=== PATIENT | male | born 1965 | race Two or more races ===

== ENCOUNTER 2021-05-22 22:59 | Inpatient (IN) | payer MEDICAID, OTHER ==
[~2021-05-22] VITALS: Ht 185.4 cm; Wt 96.8 kg
[2021-05-23 01:51] LABS: Basophils # (auto) 0.1 10 ^3/uL (0-0.2); Basophils % (auto) 0.8 % (0.0-2.0); Eosinophils # (auto) 0.1 10 ^3/uL (0-0.8); Eosinophils % (auto) 1.6 % (0.0-7.0); Hematocrit 40.5 % (41.0-53.0); Hemoglobin 13.9 g/dL (13.5-17.5); Lymphocytes # (auto) 1.7 10 ^3/uL (0.4-5.4); Lymphocytes % (auto) 20.7 % (10.0-50.0); Mean Corpuscular Hemoglobin 30.3 pg (28.0-32.0); Mean Corpuscular Hgb Conc. 34.3 g/dL (32.0-36.0); Mean Corpuscular Volume 88.3 fL (80.0-100.0); Monocytes # (auto) 0.4 10 ^3/uL (0-1.3); Monocytes % (auto) 4.5 % (0.0-12.0); Neutrophils # (auto) 5.9 10 ^3/uL (1.6-8.6); Neutrophils % (auto) 72.4 % (37.0-80.0); Red Blood Cells 4.58 10^6/uL (4.5-5.90); Red Cell Distribution Width 13.7 % (11.8-14.3); White Blood Cell 8.2 10^3/uL (4.4-10.8)
[2021-05-23 01:57] LABS: Albumin 3.7 g/dL (3.4-5.0); Calcium 8.7 mg/dL (8.5-10.1); Potassium 3.9 mmol/L (3.5-5.1)
[2021-05-23 02:01] LABS: BUN/Creatinine Ratio 25.8; Bilirubin, Total 0.2 mg/dL (0.2-1.0); Total Protein 7.7 g/dL (6.4-8.2)
[2021-05-23] MEDS ORDERED: ASPirin 325 MG TAB PO ONE (02:30)
[2021-05-23] MEDS ORDERED: HEPARIN DRIP/D5W 100UNITS/ML 250 ML IV SCH ×2 (03:30→09:15)
[2021-05-23] MEDS ORDERED: HEPARIN SODIUM (PORCINE) 5000 UNITS/ML 1ML VIAL IV ONE (03:30)
[2021-05-23 04:32] LABS: INR 1.04 (0.9-1.15); Partial Thromboplastin Time 28.3 sec (23.6-33.0)
[2021-05-23 04:38] LABS: Basophils # (auto) 0.1 10 ^3/uL (0-0.2); Basophils % (auto) 1.2 % (0.0-2.0); Eosinophils # (auto) 0.2 10 ^3/uL (0-0.8); Eosinophils % (auto) 2.2 % (0.0-7.0); Hematocrit 40.4 % (41.0-53.0); Lymphocytes # (auto) 2.3 10 ^3/uL (0.4-5.4); Mean Corpuscular Hemoglobin 30.8 pg (28.0-32.0); Mean Corpuscular Hgb Conc. 34.7 g/dL (32.0-36.0); Mean Corpuscular Volume 88.7 fL (80.0-100.0); Monocytes # (auto) 0.4 10 ^3/uL (0-1.3); Monocytes % (auto) 5.6 % (0.0-12.0); Neutrophils # (auto) 4.6 10 ^3/uL (1.6-8.6); Nucleated Red Blood Cells % 0.1 %; Red Blood Cells 4.55 10^6/uL (4.5-5.90); Red Cell Distribution Width 13.6 % (11.8-14.3); White Blood Cell 7.6 10^3/uL (4.4-10.8)
[2021-05-23] MEDS ORDERED: NITROGLYCERIN 0.4 MG SL TAB SL PRN (07:00)
[2021-05-23] MEDS ORDERED: MORPHINE SULFATE INJECTION 2 MG/ML SYRG IV PRN (07:00)
[2021-05-23] MEDS ORDERED: ACETAMINOPHEN 325 MG TAB PO PRN (07:00)
[2021-05-23] MEDS ORDERED: ONDANSETRON HCL 4 MG/2 ML VIAL IV PRN (07:00)
[2021-05-23 09:23] LABS: Cholesterol 220 mg/dL (< 200)
[2021-05-23 09:25] LABS: HDL Cholesterol 30 mg/dL (40-59); LDL Cholesterol 133 mg/dL (< 100); Triglycerides 377 mg/dL (< 150)
[2021-05-23 09:34] LABS: INR 1.09 (0.9-1.15); Partial Thromboplastin Time 54.1 sec (23.6-33.0)
[2021-05-23] MEDS: amLODIPine BESYLATE 5 MG TAB PO SCH (10:07)
[2021-05-23] MEDS: PANTOPRAZOLE 40 MG TAB PO SCH (10:09)
[2021-05-23 10:56] LABS: INR 1.06 (0.9-1.15); Partial Thromboplastin Time 35.4 sec (23.6-33.0)
[2021-05-23] MEDS: HEPARIN DRIP/D5W 100UNITS/ML 250 ML IV SCH (13:02)
[2021-05-23 16:17] VITALS: BP 141/97
[2021-05-23 18:12] VITALS: BP 141/97
[2021-05-23 20:00] VITALS: BP 130/93
[2021-05-23 20:01] LABS: INR 1.05 (0.9-1.15); Partial Thromboplastin Time 58.1 sec (23.6-33.0)
[2021-05-23] MEDS ORDERED: ATORVASTATIN 20 MG TAB PO SCH (22:00)
[2021-05-23] MEDS: ATORVASTATIN 20 MG TAB PO SCH (22:03)
[2021-05-23] MEDS: HYDROcodone-ACET 5/325MG TAB PO PRN (22:05)
[2021-05-23] MEDS: TEMAZEPAM 15 MG CAP PO PRN (22:06)
[2021-05-23 22:37] VITALS: BP 130/93
[2021-05-24] VITALS (7 sets, daily range): BP systolic 122–134; BP diastolic 74–93
[2021-05-24] MEDS: HEPARIN DRIP/D5W 100UNITS/ML 250 ML IV SCH ×3 (00:37→22:28)
[2021-05-24 01:26] LABS: Basophils # (auto) 0.1 10 ^3/uL (0-0.2); Basophils % (auto) 0.8 % (0.0-2.0); Eosinophils # (auto) 0 10 ^3/uL (0-0.8); Eosinophils % (auto) 0.3 % (0.0-7.0); Hematocrit 41.1 % (41.0-53.0); Hemoglobin 14.3 g/dL (13.5-17.5); Lymphocytes # (auto) 1.7 10 ^3/uL (0.4-5.4); Lymphocytes % (auto) 18.8 % (10.0-50.0); Mean Corpuscular Hemoglobin 30.4 pg (28.0-32.0); Mean Corpuscular Hgb Conc. 34.8 g/dL (32.0-36.0); Mean Corpuscular Volume 87.5 fL (80.0-100.0); Monocytes # (auto) 0.3 10 ^3/uL (0-1.3); Monocytes % (auto) 3.6 % (0.0-12.0); Neutrophils # (auto) 6.8 10 ^3/uL (1.6-8.6); Neutrophils % (auto) 76.5 % (37.0-80.0); Nucleated Red Blood Cells % 0.1 %; Red Cell Distribution Width 13.5 % (11.8-14.3); White Blood Cell 8.9 10^3/uL (4.4-10.8)
[2021-05-24 01:37] LABS: INR 1.07 (0.9-1.15); Partial Thromboplastin Time 60.5 sec (23.6-33.0)
[2021-05-24 01:43] LABS: Albumin 3.7 g/dL (3.4-5.0); Calcium 8.9 mg/dL (8.5-10.1); Potassium 3.8 mmol/L (3.5-5.1)
[2021-05-24 01:49] LABS: BUN/Creatinine Ratio 16.5; Bilirubin, Total 0.3 mg/dL (0.2-1.0); Total Protein 7.8 g/dL (6.4-8.2)
[2021-05-24 09:35] LABS: INR 1.4 (0.9-1.15); Partial Thromboplastin Time 69.1 sec (23.6-33.0)
[2021-05-24] MEDS: PANTOPRAZOLE 40 MG TAB PO SCH (10:00)
[2021-05-24] MEDS: amLODIPine BESYLATE 5 MG TAB PO SCH (10:00)
[2021-05-24] MEDS: ASPirin 81 mg TAB PO SCH (10:00)
[2021-05-24] MEDS: HYDROcodone-ACET 5/325MG TAB PO PRN ×2 (11:20→22:29)
[2021-05-24] MEDS: ATORVASTATIN 20 MG TAB PO SCH (22:17)
[2021-05-24] MEDS: TEMAZEPAM 15 MG CAP PO PRN (22:18)
[2021-05-25 05:00] VITALS: BP 115/83
[2021-05-25] MEDS: HYDROcodone-ACET 5/325MG TAB PO PRN ×4 (06:19→21:50)
[2021-05-25] MEDS: HEPARIN DRIP/D5W 100UNITS/ML 250 ML IV SCH ×3 (07:58→21:52)
[2021-05-25 09:39] LABS: Basophils # (auto) 0.1 10 ^3/uL (0-0.2); Basophils % (auto) 0.9 % (0.0-2.0); Eosinophils # (auto) 0.1 10 ^3/uL (0-0.8); Eosinophils % (auto) 1.9 % (0.0-7.0); Hematocrit 39.2 % (41.0-53.0); Hemoglobin 13.1 g/dL (13.5-17.5); Lymphocytes # (auto) 2.3 10 ^3/uL (0.4-5.4); Lymphocytes % (auto) 29.2 % (10.0-50.0); Mean Corpuscular Hemoglobin 29.9 pg (28.0-32.0); Mean Corpuscular Hgb Conc. 33.4 g/dL (32.0-36.0); Mean Corpuscular Volume 89.5 fL (80.0-100.0); Monocytes # (auto) 0.4 10 ^3/uL (0-1.3); Monocytes % (auto) 5.3 % (0.0-12.0); Neutrophils # (auto) 4.9 10 ^3/uL (1.6-8.6); Neutrophils % (auto) 62.7 % (37.0-80.0); Nucleated Red Blood Cells % 0.2 %; Red Blood Cells 4.38 10^6/uL (4.5-5.90); Red Cell Distribution Width 13.7 % (11.8-14.3); White Blood Cell 7.8 10^3/uL (4.4-10.8)
[2021-05-25] MEDS: amLODIPine BESYLATE 5 MG TAB PO SCH (10:00)
[2021-05-25] MEDS: PANTOPRAZOLE 40 MG TAB PO SCH (10:00)
[2021-05-25] MEDS: ASPirin 81 mg TAB PO SCH (10:00)
[2021-05-25 10:48] LABS: INR 1.1 (0.9-1.15)
[2021-05-25 12:02] LABS: Partial Thromboplastin Time 104.7 sec (23.6-33.0)
[2021-05-25 13:00] VITALS: BP 115/78
[2021-05-25 17:00] VITALS: BP 121/80
[2021-05-25 20:00] VITALS: BP 133/72
[2021-05-25] MEDS: ATORVASTATIN 20 MG TAB PO SCH (21:49)
[2021-05-25] MEDS: TEMAZEPAM 15 MG CAP PO PRN (21:50)
[2021-05-25 22:15] VITALS: BP 133/72
[2021-05-25 22:53] LABS: INR 1.08 (0.9-1.15); Partial Thromboplastin Time 45.5 sec (23.6-33.0)
[2021-05-26] MEDS: HYDROcodone-ACET 5/325MG TAB PO PRN ×2 (02:45→22:03)
[2021-05-26 04:30] VITALS: BP 133/93
[2021-05-26] MEDS: HEPARIN DRIP/D5W 100UNITS/ML 250 ML IV SCH (05:01)
[2021-05-26 07:01] LABS: INR 1.06 (0.9-1.15)
[2021-05-26 07:38] LABS: Partial Thromboplastin Time 90.3 sec (23.6-33.0)
[2021-05-26 09:00] VITALS: BP 124/87
[2021-05-26] MEDS: PANTOPRAZOLE 40 MG TAB PO SCH (09:41)
[2021-05-26] MEDS: amLODIPine BESYLATE 5 MG TAB PO SCH (09:41)
[2021-05-26] MEDS: ASPirin 81 mg TAB PO SCH (09:45)
[2021-05-26] MEDS: APIXABAN 5 MG TAB PO SCH ×2 (11:12→21:59)
[2021-05-26 13:00] VITALS: BP 119/88
[2021-05-26 15:55] LABS: INR 1.09 (0.9-1.15); Partial Thromboplastin Time 27.5 sec (23.6-33.0)
[2021-05-26 17:18] VITALS: BP 126/75
[2021-05-26 20:00] VITALS: BP 128/80
[2021-05-26 22:00] VITALS: BP 128/80
[2021-05-26] MEDS: ATORVASTATIN 20 MG TAB PO SCH (22:02)
[2021-05-26] MEDS: TEMAZEPAM 15 MG CAP PO PRN (22:03)
[2021-05-27] VITALS (7 sets, daily range): BP systolic 114–135; BP diastolic 76–93
[2021-05-27] MEDS ORDERED: AMLO-489 PO (09:20)
[2021-05-27] MEDS ORDERED: APIX5TAB PO (09:24)
[2021-05-27] MEDS ORDERED: AML5T PO (09:24)
[2021-05-27] MEDS ORDERED: ATO40T PO (09:27)
[2021-05-27] MEDS: APIXABAN 5 MG TAB PO SCH (10:14)
[2021-05-27] MEDS: ASPirin 81 mg TAB PO SCH (10:14)
[2021-05-27] MEDS: PANTOPRAZOLE 40 MG TAB PO SCH (10:16)
[2021-05-27] MEDS: amLODIPine BESYLATE 5 MG TAB PO SCH (10:22)
[2021-05-27] MEDS: HYDROcodone-ACET 5/325MG TAB PO PRN (20:42)
[2021-05-27] MEDS ORDERED: MORPHINE SULFATE INJECTION 2 MG/ML SYRG IV PRN (21:00)
[2021-05-27] MEDS: ATORVASTATIN 20 MG TAB PO SCH (22:11)
[2021-05-27] MEDS: DOCUSATE SOD 100 MG CAP PO SCH (22:11)
[2021-05-27] MEDS: TEMAZEPAM 15 MG CAP PO PRN (23:58)
[2021-05-28] MEDS: CYCLOBENZAPRINE HCL 10 MG TAB PO PRN (03:12)
[2021-05-28 09:00] VITALS: BP 122/83
[2021-05-28] MEDS: ASPirin 81 mg TAB PO SCH (10:00)
[2021-05-28] MEDS: DOCUSATE SOD 100 MG CAP PO SCH ×2 (10:18→21:20)
[2021-05-28] MEDS: amLODIPine BESYLATE 5 MG TAB PO SCH (10:18)
[2021-05-28] MEDS: PANTOPRAZOLE 40 MG TAB PO SCH (10:19)
[2021-05-28] MEDS: HYDROcodone-ACET 5/325MG TAB PO PRN ×2 (10:19→21:20)
[2021-05-28 13:05] VITALS: BP 143/83
[2021-05-28] MEDS: TEMAZEPAM 15 MG CAP PO PRN (21:20)
[2021-05-28] MEDS: ATORVASTATIN 20 MG TAB PO SCH (21:20)
[2021-05-28] MEDS ORDERED: MAGNESIUM CITRATE SOLUTION 300 ML BTL PO PRN (22:15)
[2021-05-29 06:00] VITALS: BP 116/78
[2021-05-29 07:00] LABS: Hematocrit 27.5 % (41.0-53.0); Hemoglobin 9.4 g/dL (13.5-17.5)
[2021-05-29 08:00] VITALS: BP 145/87
[2021-05-29 08:19] LABS: Basophils # (auto) 0.1 10 ^3/uL (0-0.2); Basophils % (auto) 0.7 % (0.0-2.0); Eosinophils # (auto) 0.2 10 ^3/uL (0-0.8); Eosinophils % (auto) 2.2 % (0.0-7.0); Lymphocytes # (auto) 1.9 10 ^3/uL (0.4-5.4); Lymphocytes % (auto) 19.7 % (10.0-50.0); Mean Corpuscular Hemoglobin 30.5 pg (28.0-32.0); Mean Corpuscular Hgb Conc. 34.2 g/dL (32.0-36.0); Mean Corpuscular Volume 89.1 fL (80.0-100.0); Monocytes # (auto) 0.8 10 ^3/uL (0-1.3); Monocytes % (auto) 8.5 % (0.0-12.0); Neutrophils # (auto) 6.5 10 ^3/uL (1.6-8.6); Neutrophils % (auto) 68.9 % (37.0-80.0); Nucleated Red Blood Cells % 0.1 %; Red Blood Cells 3.12 10^6/uL (4.5-5.90); Red Cell Distribution Width 13.6 % (11.8-14.3); White Blood Cell 9.4 10^3/uL (4.4-10.8)
[2021-05-29 09:04] LABS: Potassium 3.9 mmol/L (3.5-5.1)
[2021-05-29 09:10] LABS: BUN/Creatinine Ratio 21.3; Calcium 8.6 mg/dL (8.5-10.1)
[2021-05-29 09:27] LABS: INR 1.06 (0.9-1.15); Partial Thromboplastin Time 26.1 sec (23.6-33.0)
[2021-05-29] MEDS: ASPirin 81 mg TAB PO SCH (10:50)
[2021-05-29] MEDS: amLODIPine BESYLATE 5 MG TAB PO SCH (10:51)
[2021-05-29] MEDS: PANTOPRAZOLE 40 MG TAB PO SCH (10:51)
[2021-05-29] MEDS: DOCUSATE SOD 100 MG CAP PO SCH ×2 (10:51→22:57)
[2021-05-29 12:31] LABS: Urine Bacteria NONE SEEN /hpf (None Seen); Urine Blood 2+ /uL (Negative); Urine Specific Gravity 1.006 (1.001-1.035); Urine WBC 1 /hpf (0 - 3)
[2021-05-29 13:30] VITALS: BP 111/77
[2021-05-29] MEDS ORDERED: LIDOCAINE 2%HCL (LOCAL ANESTH.) INJ 20ML MDV ONE (15:24)
[2021-05-29] MEDS ORDERED: fentaNYL CITRATE 100 MCG/2 ML VL ONE (15:30)
[2021-05-29] MEDS ORDERED: MIDAZOLAM HCL 2MG/2ML 2ml VIAL (1mg/ml) ONE (15:30)
[2021-05-29] MEDS: CYCLOBENZAPRINE HCL 10 MG TAB PO PRN (18:59)
[2021-05-29] MEDS ORDERED: OXYBUTYNIN CHL 5 MG TAB PO ONE (19:00)
[2021-05-29 20:00] VITALS: BP 122/77
[2021-05-29 22:00] VITALS: BP 122/77
[2021-05-29] MEDS: ATORVASTATIN 20 MG TAB PO SCH (22:57)
[2021-05-29] MEDS: TEMAZEPAM 15 MG CAP PO PRN (23:01)
[2021-05-30 05:00] VITALS: BP 125/68
[2021-05-30 09:00] VITALS: BP 138/83
[2021-05-30] MEDS: PANTOPRAZOLE 40 MG TAB PO SCH (10:00)
[2021-05-30] MEDS: ASPirin 81 mg TAB PO SCH (10:00)
[2021-05-30] MEDS: DOCUSATE SOD 100 MG CAP PO SCH ×2 (10:00→21:44)
[2021-05-30] MEDS: amLODIPine BESYLATE 5 MG TAB PO SCH (10:00)
[2021-05-30 12:44] VITALS: BP 121/77
[2021-05-30 17:19] VITALS: BP 121/80
[2021-05-30 20:00] VITALS: BP 129/72
[2021-05-30] MEDS: ATORVASTATIN 20 MG TAB PO SCH (21:43)
[2021-05-30] MEDS: TEMAZEPAM 15 MG CAP PO PRN (21:43)
[2021-05-30 22:00] VITALS: BP 129/72
[2021-05-31] MEDS: HYDROcodone-ACET 5/325MG TAB PO PRN (00:47)
[2021-05-31 05:00] VITALS: BP 124/83
[2021-05-31 08:00] VITALS: BP 129/72
[2021-05-31 09:00] VITALS: BP 121/72
[2021-05-31] MEDS: amLODIPine BESYLATE 5 MG TAB PO SCH (09:31)
[2021-05-31] MEDS: PANTOPRAZOLE 40 MG TAB PO SCH (09:31)
[2021-05-31] MEDS: DOCUSATE SOD 100 MG CAP PO SCH (09:32)
[2021-05-31] MEDS: ASPirin 81 mg TAB PO SCH (09:32)
[2021-05-31] MEDS ORDERED: APIX5TAB PO (10:26)
[2021-05-31 13:00] VITALS: BP 128/78
[2021-05-31 15:35] VITALS: BP 121/72
[2021-05-31 17:00] VITALS: BP 123/83
[2021-06-02] MEDS ORDERED: APIXABAN 5 MG TAB PO SCH (10:00)
== END 2021-05-31 19:35 | disposition home or self-care (01) | DRG 190 ==
LOC: ER 22:59 → TELE 05-23 06:50 → TELE-CENTR 05-23 15:46
PROVIDERS: ADMIT Nurse Practitioner; ATTEND Family Medicine
PROC: 06H03DZ Insertion of Intraluminal Device into Inferior Vena Cava, Percutaneous Approach (ICD-10-PCS; principal; 2021-05-30)
PROC: B51 Imaging, Veins, Fluoroscopy (ICD-10-PCS; 2021-05-30)
DX: I21.4 Non-ST elevation (NSTEMI) myocardial infarction (principal); I26.92 Saddle embolus of pulmonary artery without acute cor pulmonale; G61.0 Guillain-Barre syndrome; I82.432 Acute embolism and thrombosis of left popliteal vein; E66.9 Obesity, unspecified; E78.5 Hyperlipidemia, unspecified; Z20.822 Contact with and (suspected) exposure to COVID-19; I10 Essential (primary) hypertension; Z99.3 Dependence on wheelchair; R31.0 Gross hematuria; Z79.01 Long term (current) use of anticoagulants; Z95.828 Presence of other vascular implants and grafts; Z82.49 Family history of ischemic heart disease and other diseases of the circulatory system; Z68.28 Body mass index [BMI] 28.0-28.9, adult
CPT/HCPCS: 36415; 36600; 37191; 71045; 71275; 74176; 80048; 80053; 80061; 81001; 82805; 83036; 84484; 85025; 85379; 85610; 85730; 86850; 86900; 86901; 87426; 93005; 93306; 93970; 96365; 96366; 96376; 99152; 99291; G0378; J2250